=== PATIENT | female | born 1945 | race Caucasian/White ===

== ENCOUNTER 2017-03-24 11:35 | Emergency (ER) | payer MEDICARE ==
[2017-03-24] MEDS ORDERED: MOTRIN PO ONE (13:39)
--- NOTE | 2017-03-24 13:44 | Emergency Department Report ---
ED Upper Extremity Inj HPI - General Chief Complaint: Extremity Injury, Upper Stated Complaint: JAMMED FINGER Time Seen by Provider: 03/24/17 13:06 Source: patient Mode of arrival: Ambulatory Limitations: No Limitations - History of Present Illness Initial Comments: This is a 72-year-old female nontoxic, well nourished in appearance, no acute signs of distress presents to the ED complaining of right middle finger pain and swelling. Patient stated yesterday she was along her bags and twisted her right middle finger. Patient denies any direct blows or trauma. Patient stated right middle finger has ecchymosis and edema to the region. Denies any numbness, tingling, or deformity. Denies any fever, chills, nausea, vomiting, chest pain or short of breath. Patient states allergies to penicillin and sulfa. Past medical history includes asthma, hernia, and high cholesterol. MD Complaint: Injury to:: right, finger -: Gradual, days(s) (1) Other Extremity Injury: Fingers: Right Other Injuries: none Place: outdoors Severity scale (0 -10): 7 Improves With: none Worsens With: immobilization Context: other (twist) Associated Symptoms: denies other symptoms. denies: weakness, numbness, neck pain, suspects foreign body, nausea/vomiting, heard/felt popping sensat - Related Data Previous Rx's Medication Instructions Recorded Last Taken Type Ibuprofen [Motrin 600 MG tab] 600 mg PO Q8H PRN #30 tablet 03/24/17 Unknown Rx Allergies Allergy/AdvReac Type Severity Reaction Status Date / Time Penicillins AdvReac Shortness Verified 03/24/17 11:49 of Breath Sulfa (Sulfonamide AdvReac Rash Verified 03/24/17 11:49 Antibiotics) ED Review of Systems ROS: Stated complaint: JAMMED FINGER Other details as noted in HPI Constitutional: denies: chills, fever Eyes: denies: eye pain, eye discharge, vision change ENT: denies: ear pain, throat pain Respiratory: denies: cough, shortness of breath, wheezing Cardiovascular: denies: chest pain, palpitations Endocrine: no symptoms reported Gastrointestinal: denies: abdominal pain, nausea, diarrhea Genitourinary: denies: urgency, dysuria, discharge Musculoskeletal: denies: back pain, joint swelling, arthralgia Skin: denies: rash, lesions Neurological: denies: headache, weakness, paresthesias Psychiatric: denies: anxiety, depression Hematological/Lymphatic: denies: easy bleeding, easy bruising ED Past Medical Hx - Past Medical History Previous Medical History?: Yes Hx Asthma: Yes Additional medical history: cholesterol - Surgical History Past Surgical History?: Yes Additional Surgical History: hernia - Social History Smoking Status: Never Smoker Substance Use Type: Alcohol - Medications Home Medications: Home Medications Medication Instructions Recorded Confirmed Last Taken Type Ibuprofen [Motrin 600 MG tab] 600 mg PO Q8H PRN #30 tablet 03/24/17 Unknown Rx ED Physical Exam - General Limitations: No Limitations General appearance: alert, in no apparent distress - Head Head exam: Present: atraumatic, normocephalic, normal inspection - Eye Eye exam: Present: normal appearance, PERRL, EOMI. Absent: scleral icterus, conjunctival injection, nystagmus, periorbital swelling, periorbital tenderness Pupils: Present: normal accommodation - ENT ENT exam: Present: normal exam, normal orophraynx, mucous membranes moist, TM's normal bilaterally, normal external ear exam - Neck Neck exam: Present: normal inspection, full ROM. Absent: tenderness, meningismus, lymphadenopathy, thyromegaly - Respiratory Respiratory exam: Present: normal lung sounds bilaterally. Absent: respiratory distress, wheezes, rales, rhonchi, stridor, chest wall tenderness, accessory muscle use, decreased breath sounds, prolonged expiratory - Cardiovascular Cardiovascular Exam: Present: regular rate, normal rhythm, normal heart sounds. Absent: bradycardia, tachycardia, irregular rhythm, systolic murmur, diastolic murmur, rubs, gallop - GI/Abdominal GI/Abdominal exam: Present: soft, normal bowel sounds. Absent: distended, tenderness, guarding, rebound, rigid, diminished bowel sounds - Rectal Rectal exam: Present: deferred - Extremities Exam Extremities exam: Present: normal inspection, full ROM, tenderness, normal capillary refill. Absent: pedal edema, joint swelling, calf tenderness - Expanded Upper Extremity Exam Right General: Present: normal inspection Shoulder Exam: Present: normal inspection, full ROM. Absent: tenderness, swelling, abrasion, laceration Upper Arm exam: Present: normal inspection, full ROM. Absent: tenderness, swelling Elbow exam: Present: normal inspection, full ROM. Absent: tenderness, swelling Forearm Wrist exam: Present: normal inspection, full ROM. Absent: tenderness, swelling Hand Wrist exam: Present: normal inspection, full ROM, tenderness, swelling, ecchymosis. Absent: abrasion, laceration, deformity, crepidus, dislocation, erythema, amputation, nail avulsion, subungual hematoma Hand L/R Back: 1 - swelling, ecchymosis, and tender to touch Neuro motor exam: Present: wrist extension intact, thumb opposition intact, thumb IP flexion intact, thumb adduction intact, fingers 2-5 abduction intact Neurosensory exam: Present: 2-point discrimination, radial nerve intact, ulnar nerve intact, median nerve intact Vascular: Present: vascular compromise, normal capillary refill, radial pulse, brachial pulse, ulnar pulse - Back Exam Back exam: Present: normal inspection, full ROM. Absent: tenderness, CVA tenderness (R), CVA tenderness (L), muscle spasm, paraspinal tenderness, vertebral tenderness, rash noted - Neurological Exam Neurological exam: Present: alert, oriented X3, CN II-XII intact, normal gait, reflexes normal - Psychiatric Psychiatric exam: Present: normal affect, normal mood - Skin Skin exam: Present: warm, dry, intact, normal color. Absent: rash ED Course Vital Signs 03/24/17 11:45 Temperature 98.7 F Pulse Rate 86 Respiratory 16 Rate Blood Pressure 156/81 O2 Sat by Pulse 97 Oximetry - Reevaluation(s) Reevaluation #1: 03/24/17 13:46 Patient is speaking in full sentences with no signs of distress. ED Medical Decision Making - Medical Decision Making 9-year-old female that presents with right middle finger strain. Patient received an x-ray and intubated by radiologist with no fractures, dislocation or any abnormal imaging. Patient was notified of x-ray results with no further questions or by patient. Patient was started to rest, elevate, and ice extremity. Patient received a finger splint with a follow-up with orthopedic doctor in 3-5 days. Patient received ibuprofen 600 mg by mouth in the ED. As well as discharge. At time time of discharge, the patient does not seem toxic or ill in appearance. No acute signs of distress noted. Patient agrees to discharge treatment plan of care. No further questions noted by the patient. Critical care attestation.: If time is entered above; I have spent that time in minutes in the direct care of this critically ill patient, excluding procedure time. ED Disposition Clinical Impression: Finger sprain Qualifiers: Encounter type: initial encounter Finger: middle finger Sprain of finger site: unspecified site Laterality: right Qualified Code(s): S63.612A - Unspecified sprain of right middle finger, initial encounter Disposition: TO HOME OR SELFCARE Is pt being admited?: No Does the pt Need Aspirin: No Condition: Stable Instructions: Ibuprofen (By mouth), Splint Care (ED), Finger Sprain (ED), RICE Therapy (ED) Additional Instructions: Follow-up with Dr. Vargas or another orthopedic doctor in 3-5 days or if symptoms worsen and continue return to emergency room as soon as possible. Rest, elevate, ice extremity. Prescriptions: Ibuprofen [Motrin 600 MG tab] 600 mg PO Q8H PRN #30 tablet PRN Reason: Pain Referrals: PRIMARY CAREMD [Primary Care Provider] - 3-5 Days MARTIN VARGAS MD [Staff Physician] - 3-5 Days [facility] [Outside] - 3-5 Days [facility] [Outside] - 3-5 Days Forms: Work/School Release Form(ED)
[2017-03-24 14:47] VITALS: BP 152/80
--- NOTE | 2017-03-24 14:55 | XRay Report ---
FINAL REPORT EXAM: XR HAND 3+V RT HISTORY: hand pain with swellign TECHNIQUE: 3 views of the right hand. 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 No erosive changes. No acute fracture or dislocation seen. IMPRESSION: 1. No acute finding
== END 2017-03-24 15:44 | disposition home or self-care (01) ==
LOC: ED 11:35
DX: S63.612A Unspecified sprain of right middle finger, initial encounter (principal); J45.909 Unspecified asthma, uncomplicated; Z88.0 Allergy status to penicillin; Z88.2 Allergy status to sulfonamides; W23.0XXA Caught, crushed, jammed, or pinched between moving objects, initial encounter; Y93.89 Activity, other specified; Y92.89 Other specified places as the place of occurrence of the external cause; Y99.8 Other external cause status
CPT/HCPCS: 99283

== ENCOUNTER 2017-03-30 09:43 | Emergency (ER) | payer MEDICARE ==
--- NOTE | 2017-03-30 11:41 | Emergency Department Report ---
ED Upper Extremity Inj HPI - General Chief Complaint: Extremity Injury, Upper Stated Complaint: RECHECK FINGER INJURY Time Seen by Provider: 03/30/17 11:36 Source: patient Mode of arrival: Ambulatory Limitations: No Limitations - History of Present Illness Complaint: Injury to:: right -: days(s) Other Extremity Injury: Hand: Right Handedness: right Place: home Improves With: cold therapy, immobilization Worsens With: movement of extremity Associated Symptoms: denies other symptoms Treatments Prior to Arrival: cold therapy - Related Data Previous Rx's Medication Instructions Recorded Last Taken Type Ibuprofen [Motrin 600 MG tab] 600 mg PO Q8H PRN #30 tablet 03/24/17 Unknown Rx Allergies Allergy/AdvReac Type Severity Reaction Status Date / Time Penicillins AdvReac Shortness Verified 03/24/17 11:49 of Breath Sulfa (Sulfonamide AdvReac Rash Verified 03/24/17 11:49 Antibiotics) ED Review of Systems ROS: Stated complaint: RECHECK FINGER INJURY Other details as noted in HPI Comment: All other systems reviewed and negative Constitutional: no symptoms reported, see HPI Eyes: as per HPI ENT: as per HPI Respiratory: no symptoms reported, see HPI Cardiovascular: as per HPI Endocrine: no symptoms reported, see HPI Gastrointestinal: as per HPI Genitourinary: as per HPI Musculoskeletal: as per HPI, other (r hand pain) Skin: as per HPI Neurological: as per HPI Psychiatric: as per HPI Hematological/Lymphatic: as per HPI ED Past Medical Hx - Past Medical History Hx Hypertension: Yes Hx Psychiatric Treatment: Yes (Anxiety) Hx Asthma: Yes Additional medical history: cholesterol - Surgical History Additional Surgical History: hernia - Social History Smoking Status: Never Smoker Substance Use Type: None - Medications Home Medications: Home Medications Medication Instructions Recorded Confirmed Last Taken Type Ibuprofen [Motrin 600 MG tab] 600 mg PO Q8H PRN #30 tablet 03/24/17 Unknown Rx ED Physical Exam - General Limitations: No Limitations General appearance: alert - Head Head exam: Present: atraumatic - Eye Eye exam: Present: PERRL - ENT ENT exam: Present: mucous membranes moist - Neck Neck exam: Present: normal inspection - Respiratory Respiratory exam: Present: normal lung sounds bilaterally - Cardiovascular Cardiovascular Exam: Present: regular rate - GI/Abdominal GI/Abdominal exam: Present: soft - Rectal Rectal exam: Present: deferred - Extremities Exam Extremities exam: Present: full ROM, normal capillary refill, other (BRUISING AT INDICATED SITE. FULL ROM). Absent: tenderness, pedal edema - Expanded Upper Extremity Exam Right Shoulder Exam: Present: normal inspection Upper Arm exam: Present: normal inspection Elbow exam: Present: normal inspection Forearm Wrist exam: Present: swelling. Absent: other (NO SNUFF BOX) Hand Wrist exam: Present: normal inspection, full ROM, ecchymosis Hand L/R Back: 1 - AREA OF BRUISING - Back Exam Back exam: Present: normal inspection - Neurological Exam Neurological exam: Present: alert, oriented X3, CN II-XII intact, normal gait, reflexes normal. Absent: motor sensory deficit - Psychiatric Psychiatric exam: Present: normal affect, normal mood - Skin Skin exam: Present: warm, dry, ecchymosis (r hand see note) ED Course Vital Signs 03/30/17 09:57 Temperature 99.0 F Pulse Rate 65 Respiratory 16 Rate Blood Pressure 141/100 O2 Sat by Pulse 98 Oximetry - Reevaluation(s) Reevaluation #1: 03/30/17 11:40 seen here on Saturday r hand pain told to fu for repeat film bc there was so much swelling on that day full rom soft tissue swelling at pip 3rd right finger good cap refill good pulses no snuff box. xray p ice applied 03/30/17 12:30 pt updated on poc will fu pcp continue to take home meds ED Medical Decision Making - Radiology Data Radiology results: report reviewed, image reviewed - Medical Decision Making no fx contusion - Differential Diagnosis ro fx Critical care attestation.: If time is entered above; I have spent that time in minutes in the direct care of this critically ill patient, excluding procedure time. ED Disposition Clinical Impression: Contusion Qualifiers: Encounter type: sequela Contusion area: finger Finger: middle finger Damage to nail status: without damage Laterality: right Qualified Code(s): S60.031S - Contusion of right middle finger without damage to nail, sequela Hypertension Qualifiers: Hypertension type: unspecified Qualified Code(s): I10 - Essential (primary) hypertension Finger sprain Qualifiers: Encounter type: sequela Finger: middle finger Laterality: right Disposition: DC-01 TO HOME OR SELFCARE Is pt being admited?: No Does the pt Need Aspirin: No Condition: Stable Instructions: Contusion in Adults (ED), Hypertension (ED) Additional Instructions: REST ELEVATE WARM COMPRESSES MAY HELP TAKE HOME MEDS FOLLOW UP WITH PCP TO RECHECK YOUR BP Referrals: PRIMARY CARE [Primary Care Provider] - 3-5 Days Time of Disposition: 12:18
--- NOTE | 2017-03-30 12:09 | XRay Report ---
Right hand 3 views: History: Right hand pain. Findings: Mild arthritic changes are noted of the interphalangeal joint of second, third, fourth and fifth fingers and at the first carpometacarpal joint and metacarpophalangeal joint. No periosteal reaction, lytic lesion or soft tissue calcification. Impression: Mild arthritic changes as detailed above.
[2017-03-30 12:31] VITALS: BP 160/90
== END 2017-03-30 12:30 | disposition home or self-care (01) ==
LOC: ED 09:43
DX: S60.031D Contusion of right middle finger without damage to nail, subsequent encounter (principal); S63.692D Other sprain of right middle finger, subsequent encounter; I10 Essential (primary) hypertension; F41.9 Anxiety disorder, unspecified; E78.00 Pure hypercholesterolemia, unspecified; Z88.0 Allergy status to penicillin; Z88.2 Allergy status to sulfonamides; X58.XXXD Exposure to other specified factors, subsequent encounter
CPT/HCPCS: 99283